=== PATIENT | male | born 1990 | race Caucasian/White ===

== ENCOUNTER 2021-08-24 23:51 | Emergency (ER) | payer SELFPAY ==
[~2021-08-24] VITALS: Ht 175.2 cm; Wt 72.5 kg
[2021-08-25] MEDS ORDERED: NS IV 1000 ML 1,000 ML IV STA (00:10)
[2021-08-25 00:35] LABS: BASOPHILS % (AUTO) 0 % (0-10); EOSINOPHILS % (AUTO) 0 % (0-10); HEMATOCRIT 46 % (40-54); HEMOGLOBIN 15.6 g/dL (13.3-17.7); LYMPHOCYTES % (AUTO) 8 % (12-44); MEAN CORPUSCULAR HEMOGLOBIN 31 pg (25-34); MEAN CORPUSCULAR HGB CONC 34 g/dL (32-36); MEAN CORPUSCULAR VOLUME 91 fL (80-99); MEAN PLATELET VOLUME 9.9 fL (9.0-12.2); MONOCYTES # (AUTO) 1.5 10^3/uL (0.0-1.0); MONOCYTES % (AUTO) 12 % (0-12); NEUTROPHILS # (AUTO) 9.7 10^3/uL (1.8-7.8); NEUTROPHILS % (AUTO) 79 % (42-75); PLATELET COUNT 186 10^3/uL (130-400); WHITE BLOOD COUNT 12.4 10^3/uL (4.3-11.0)
[2021-08-25 00:58] LABS: ALBUMIN 3.9 GM/DL (3.2-4.5); CHLORIDE 103 MMOL/L (98-107); POTASSIUM 3.7 MMOL/L (3.6-5.0); SODIUM 138 MMOL/L (135-145)
[2021-08-25 01:00] LABS: CALCIUM 9.1 MG/DL (8.5-10.1)
[2021-08-25 01:01] LABS: GLUCOSE 107 MG/DL (70-105); TOTAL PROTEIN 6.5 GM/DL (6.4-8.2)
[2021-08-25 01:02] LABS: CARBON DIOXIDE 24 MMOL/L (21-32)
[2021-08-25 01:03] LABS: BILIRUBIN,TOTAL 0.7 MG/DL (0.1-1.0)
[2021-08-25 01:05] LABS: ALKALINE PHOSPHATASE 76 U/L (40-136); CREATININE SERUM 0.93 MG/DL (0.60-1.30); GFR ESTIMATED 113
[2021-08-25 01:06] LABS: BUN/CREATININE RATIO 11
[2021-08-25 01:07] LABS: SALICYLATE < 5.0 MG/DL (5.0-20.0)
[2021-08-25 01:08] LABS: ALANINE AMINOTRANSFERASE 16 U/L (0-55)
[2021-08-25 01:09] LABS: ACETAMINOPHEN < 10 UG/ML (10-30); ATYPICAL LYMPHOCYTES 2 %; BASOPHILS % (MANUAL) 1 %; LYMPHOCYTES % (MANUAL) 9 %; MONOCYTES % (MANUAL) 13 %; NEUTROPHILS % (MANUAL) 75 %; RBC MORPH NORMAL
[2021-08-25] MEDS ORDERED: CATHETER FLUSH 10 ML SYR IV PRN (01:30)
[2021-08-25] MEDS ORDERED: IOHEXOL 350 MG/ML 100 ML (OMNIPAQUE 350) VIAL IV ONE (01:30)
[2021-08-25] MEDS ORDERED: NS 100 ML (IVPB) BAG IV ONE (01:30)
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
[2021-08-25 03:23] VITALS: BP 118/80
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
== END 2021-08-25 03:23 | disposition short-term general hospital (02) ==
LOC: EDBD 23:56 → ER 23:56
DX: S00.11XA Contusion of right eyelid and periocular area, initial encounter (principal); S06.6X0A Traumatic subarachnoid hemorrhage without loss of consciousness, initial encounter; R40.2140 Coma scale, eyes open, spontaneous, unspecified time; R40.2250 Coma scale, best verbal response, oriented, unspecified time; R40.2360 Coma scale, best motor response, obeys commands, unspecified time; F17.210 Nicotine dependence, cigarettes, uncomplicated; F17.290 Nicotine dependence, other tobacco product, uncomplicated; Y04.8XXA Assault by other bodily force, initial encounter
CPT/HCPCS: 70450; 70486; 71260; 72125; 74177; 80053; 85007; 85027; 99285; G0480 ×3; 36415; 80320; 80329

== ENCOUNTER 2021-12-20 12:34 | Inpatient (IN) | payer SELFPAY ==
[~2021-12-20] VITALS: Ht 180 cm; Wt 77.1 kg
[2021-12-20] MEDS ORDERED: KETOROLAC 30 MG/ML VIAL IVP STA (14:37)
[2021-12-20] MEDS ORDERED: fentaNYL INJ 100 MCG/2 ML AMP IVP STA (14:37)
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
--- NOTE | 2021-12-20 15:09 | Diagnostic Imaging Report ---
Indication: Left hand swelling. Time of Exam: 2:38 PM Three views of the left hand were obtained. Metacarpals are intact. Phalanges are intact. Carpus unremarkable. No fracture is seen. There is generalized soft tissue swelling about the dorsum of the hand. IMPRESSION: Soft tissue swelling. No acute bony abnormality is detected. Dictated by: Dictated on workstation # [id number]
[2021-12-20] MEDS ORDERED: NS IV 1000 ML 1,000 ML ONE ×2 (15:28→18:06)
[2021-12-20] MEDS ORDERED: HYDROmorphone 2 MG/ML VIAL (DILAUDID) IV ONE (15:30)
[2021-12-20] MEDS ORDERED: NS IV 1000 ML 1,000 ML IV ONE (15:30)
[2021-12-20 15:35] LABS: BASOPHILS % (AUTO) 0 % (0-10); EOSINOPHILS % (AUTO) 0 % (0-10); HEMATOCRIT 49 % (40-54); HEMOGLOBIN 16.9 g/dL (13.3-17.7); LYMPHOCYTES # (AUTO) 1.4 X 10^3 (1.0-4.0); LYMPHOCYTES % (AUTO) 10 % (12-44); MEAN CORPUSCULAR HEMOGLOBIN 30 pg (25-34); MEAN CORPUSCULAR HGB CONC 34 g/dL (32-36); MEAN CORPUSCULAR VOLUME 87 fL (80-99); MEAN PLATELET VOLUME 9.4 fL (9.0-12.2); MONOCYTES # (AUTO) 1.1 X 10^3 (0.0-1.0); MONOCYTES % (AUTO) 8 % (0-12); NEUTROPHILS # (AUTO) 11.1 X 10^3 (1.8-7.8); NEUTROPHILS % (AUTO) 81 % (42-75); PLATELET COUNT 315 10^3/uL (130-400); WHITE BLOOD COUNT 13.7 10^3/uL (4.3-11.0)
[2021-12-20 15:45] LABS: ALBUMIN 4.2 GM/DL (3.2-4.5)
[2021-12-20 15:46] LABS: POTASSIUM 3.9 MMOL/L (3.6-5.0)
[2021-12-20 15:47] LABS: CALCIUM 9.9 MG/DL (8.5-10.1)
[2021-12-20 15:48] LABS: TOTAL PROTEIN 8.2 GM/DL (6.4-8.2)
[2021-12-20 15:50] LABS: BILIRUBIN,TOTAL 0.4 MG/DL (0.1-1.0)
[2021-12-20 15:52] LABS: CREATININE SERUM 0.77 MG/DL (0.60-1.30)
[2021-12-20 15:55] LABS: PROTHROMBIN TIME PATIENT 13.6 SEC (12.2-14.7)
[2021-12-20] MEDS ORDERED: PIPERACILLIN SODIUM/TAZOBACTAM 4.5 GM in NS (IVPB) 100 ML IV ONE (16:15)
[2021-12-20] MEDS: VANCOMYCIN INJECTION 750 MG in NS (IVPB) 250 ML IV SCH ×2 (17:40→18:17)
[2021-12-20] MEDS ORDERED: VANCOMYCIN INJECTION 0.1 MG in NS (IVPB) 250 ML IV SCH (18:00)
[2021-12-20] MEDS ORDERED: ANTACID SUSP 30 ML UDC (MYLANTA) PO PRN (18:00)
[2021-12-20] MEDS ORDERED: polyethylene glycoL POWDER 17 GM (MIRALAX) PACK PO PRN (18:00)
[2021-12-20] MEDS ORDERED: diphenhydrAMINE 25 MG TAB (BENADRYL) PO PRN (18:00)
[2021-12-20] MEDS ORDERED: MILK OF MAGNESIA 400 MG/5 ML 30 ML UDC PO PRN (18:00)
[2021-12-20] MEDS ORDERED: NALOXONE 0.4 MG/ML 1 ML (NARCAN) VIAL IV PRN (18:00)
[2021-12-20] MEDS ORDERED: diphenhydrAMINE 50 MG/ML INJ (BENADRYL) IVP PRN (18:00)
[2021-12-20] MEDS ORDERED: LACTULOSE SYRUP 10GM/15ML (ENULOSE) 30ML UDC PO PRN (18:00)
[2021-12-20] MEDS ORDERED: MELATONIN 3 MG TABLET PO PRN (18:00)
[2021-12-20] MEDS ORDERED: CALCIUM CARBONATE 500 MG (TUMS) TAB.CHEW PO PRN (18:00)
[2021-12-20] MEDS ORDERED: ACETAMINOPHEN 325 MG TABLET PO PRN (18:00)
[2021-12-20] MEDS ORDERED: ONDANSETRON 4 MG/2 ML (SDV) Z0FRAN IV PRN (18:00)
[2021-12-20] MEDS ORDERED: ONDANSETRON 4 MG (ZOFRAN) ORAL DISSOLVE TAB PO PRN (18:00)
[2021-12-20] MEDS ORDERED: BISACODYL 10 MG SUPP (DULCOLAX) PR PRN (18:00)
[2021-12-20] MEDS ORDERED: HYDROmorphone 2 MG/ML VIAL (DILAUDID) IV PRN (18:00)
[2021-12-20] MEDS: NS IV 1000 ML 1,000 ML IV SCH (18:16)
[2021-12-20 19:36] VITALS: BP 145/74
[2021-12-20] MEDS: SENNOSIDES 8.6 MG (SENOKOT) TAB PO SCH (20:37)
[2021-12-20] MEDS: DOCUSATE SODIUM 100 MG (COLACE) CAP PO SCH (20:37)
[2021-12-20] MEDS: PIPERACILLIN SODIUM/TAZOBACTAM 4.5 GM in NS (IVPB) 100 ML IV SCH (22:56)
[2021-12-21] VITALS (9 sets, daily range): BP systolic 109–128; BP diastolic 64–82
[2021-12-21] MEDS: NS IV 1000 ML 1,000 ML IV SCH ×3 (02:18→19:16)
[2021-12-21] MEDS: VANCOMYCIN 1250 MG/NS 250 ML IVPB IV SCH ×4 (05:50→18:26)
[2021-12-21 05:56] LABS: BASOPHILS % (AUTO) 0 % (0-10); EOSINOPHILS # (AUTO) 0.1 10^3/uL (0.0-0.3); EOSINOPHILS % (AUTO) 1 % (0-10); HEMATOCRIT 43 % (40-54); HEMOGLOBIN 14.4 g/dL (13.3-17.7); LYMPHOCYTES # (AUTO) 1.2 10^3/uL (1.0-4.0); LYMPHOCYTES % (AUTO) 10 % (12-44); MEAN CORPUSCULAR HEMOGLOBIN 30 pg (25-34); MEAN CORPUSCULAR HGB CONC 33 g/dL (32-36); MEAN CORPUSCULAR VOLUME 90 fL (80-99); MEAN PLATELET VOLUME 9.8 fL (9.0-12.2); MONOCYTES # (AUTO) 1.3 10^3/uL (0.0-1.0); MONOCYTES % (AUTO) 11 % (0-12); NEUTROPHILS # (AUTO) 9.7 10^3/uL (1.8-7.8); NEUTROPHILS % (AUTO) 78 % (42-75); PLATELET COUNT 234 10^3/uL (130-400); WHITE BLOOD COUNT 12.4 10^3/uL (4.3-11.0)
[2021-12-21 06:28] LABS: POTASSIUM 4.2 MMOL/L (3.6-5.0)
[2021-12-21 06:29] LABS: CALCIUM 8.5 MG/DL (8.5-10.1)
[2021-12-21 06:33] LABS: CREATININE SERUM 0.77 MG/DL (0.60-1.30)
[2021-12-21] MEDS: PIPERACILLIN SODIUM/TAZOBACTAM 4.5 GM in NS (IVPB) 100 ML IV SCH ×2 (06:34→14:41)
[2021-12-21] MEDS: DOCUSATE SODIUM 100 MG (COLACE) CAP PO SCH ×2 (08:09→20:21)
[2021-12-21] MEDS: SENNOSIDES 8.6 MG (SENOKOT) TAB PO SCH ×2 (08:09→20:21)
[2021-12-21] MEDS ORDERED: NS IV 1000 ML 1,000 ML IV ONE (11:00)
[2021-12-21] MEDS: KETOROLAC 30 MG/ML VIAL IVP PRN ×2 (11:28→18:25)
--- NOTE | 2021-12-21 12:51 | Consultation - Surgery ---
WAYNE CLAY 12/21/21 1251: History of Present Illness History of Present Illness Patient Consulted On(jessica/time) 12/21/21 12:47 Date Seen by Provider: Dec 21, 2021 Time Seen by Provider: 12:47 History of Present Illness Consult requested by Dr. Sotelo. Patient is a 31 y/o M patient with history of epilepsy and methamphetamine, marijuana use that presented to the ER last night with CC of pain and swelling in his left index finger which started about a week ago. Patient reports he was outside clearing brush and debris around his mother's house when he believes he must have gotten bitten by either a snake or a spider. He notes 2 small macules over the left snuffbox. States initially only this area was itchy but then he developed a cyst like lesion over the left index finger. He reports his pain at present to be 3/10 on pain meds but without meds his pain is at an 8/10. Also states that the pain extends into his left forearm and elbow with red streaking. Denies any axillary tenderness. States the swelling limits some of his movement in the left arm and he is unable to use his left hand at all. The left index finger lesion was incised and drained in the ER before admission and purulent material was expressed. Dressing was then applied. Cultures showed staph infecti on to be present and pt was placed on IV vanc/zosyn and toradol for pain. Allergies and Home Medications Allergies Coded Allergies: No Known Drug Allergies (Unverified , 08/25/21) Patient Home Medication List Home Medication List Reviewed: Yes Past Hmdevxo-Qivxnf-Vzpbhd Hx Patient Social History Smoking Status: Heavy Tobacco Smoker Alcohol Use?: No Substance type: Methamphetamine, Marijuana Have you traveled recently?: No Seasonal Allergies Seasonal Allergies: No Surgeries History of Surgeries: Yes Surgeries: Tonsillectomy Respiratory History of Respiratory Disorde: No Cardiovascular History of Cardiac Disorders: No Neurological History of Neurological Disord: Yes Neurological Disorders: Neuropathy, Seizure Disorder (noncompliant with Keppra) Genitourinary History of Genitourinary Disor: No Gastrointestinal History of Gastrointestinal Di: No Musculoskeletal History of Musculoskeletal Dis: Yes Musculoskeletal Disorders: Chronic Back Pain Endocrine History of Endocrine Disorders: No HEENT History of HEENT Disorders: Yes (Tympanostomy done in both ears) Cancer History of Cancer: No Psychosocial History of Psychiatric Problem: No Integumentary History of Skin or Integumenta: Yes Skin/Integumentary Disorders: Psoriasis Family Medical History Significant Family History: CAD Over 55 Years Old (Mother ), Other Conditions/Hx (Denies any cancer in mother, father, or siblings) Review of Systems-General Constitutional: chills; No fever EENTM: No nose congestion, No throat pain Respiratory: No cough, No short of breath Cardiovascular: No chest pain, No palpitations Gastrointestinal: No abdominal pain, No nausea, No vomiting Genitourinary: No dysuria, No hematuria Musculoskeletal: No muscle pain, No muscle weakness Skin: No pruritus; rash (redness over the left forearm ) Psychiatric/Neurological: Denies Tingling, Denies Tremors Physical Exam-General Problems Physical Exam Vital Signs Vital Signs - First Documented 12/20/21 13:13 Temp 36.8 Pulse 143 Resp 18 B/P (MAP) 125/86 (99) Pulse Ox 100 O2 Delivery Room Air Capillary Refill : Less Than 3 Seconds General Appearance: WD/WN, no apparent distress HEENT: PERRL/EOMI; No scleral icterus (R), No scleral icterus (L) Neck: non-tender, supple Respiratory: chest non-tender, lungs clear, normal breath sounds, no respiratory distress, no accessory muscle use Cardiovascular: no murmur, tachycardia Gastrointestinal: non tender, soft Rectal: deferred Back: no CVA tenderness, no vertebral tenderness Extremities: non-tender, no pedal edema, no calf tenderness, swelling (left hand and arm extending into the elbow) Neurologic/Psychiatric: alert, oriented x 3 Skin: other (red streaks over the left forearm and into the elbow) Lymphatic: no adenopathy (cervical) Data Review Labs Laboratory Tests 12/20/21 15:15: White Blood Count 13.7H, Red Blood Count 5.70H, Hemoglobin 16.9, Hematocrit 49, Mean Corpuscular Volume 87, Mean Corpuscular Hemoglobin 30, Mean Corpuscular Hemoglobin Concent 34, Red Cell Distribution Width 12.1, Platelet Count 315, Mean Platelet Volume 9.4, Immature Granulocyte % (Auto) 0, Neutrophils (%) (Auto) 81H, Lymphocytes (%) (Auto) 10L, Monocytes (%) (Auto) 8, Eosinophils (%) (Auto) 0, Basophils (%) (Auto) 0, Neutrophils # (Auto) 11.1H, Lymphocytes # (Auto) 1.4, Monocytes # (Auto) 1.1H, Eosinophils # (Auto) 0.0, Basophils # (Auto) 0.0, Immature Granulocyte # (Auto) 0.0, Prothrombin Time 13.6, INR Comment 1.0, Activated Partial Thromboplast Time 32, Sodium Level 135, Potassium Level 3.9, Chloride Level 98, Carbon Dioxide Level 26, Anion Gap 11, Blood Urea Nitrogen 8, Creatinine 0.77, Estimat Glomerular Filtration Rate 122, BUN/Creatinine Ratio 10, Glucose Level 111H, Lactic Acid Level 1.50, Calcium Level 9.9, Corrected Calcium 9.7, Total Bilirubin 0.4, Aspartate Amino Transf (AST/SGOT) 10, Alanine Aminotransferase (ALT/SGPT) 14, Alkaline Phosphatase 73, C-Reactive Protein High Sensitivity 6.06H, Total Protein 8.2, Albumin 4.2, Procalcitonin 0.03 12/21/21 05:29: White Blood Count 12.4H, Red Blood Count 4.84, Hemoglobin 14.4, Hematocrit 43, Mean Corpuscular Volume 90, Mean Corpuscular Hemoglobin 30, Mean Corpuscular Hemoglobin Concent 33, Red Cell Distribution Width 12.1, Platelet Count 234, Mean Platelet Volume 9.8, Immature Granulocyte % (Auto) 0, Neutrophils (%) (Auto) 78H, Lymphocytes (%) (Auto) 10L, Monocytes (%) (Auto) 11, Eosinophils (%) (Auto) 1, Basophils (%) (Auto) 0, Neutrophils # (Auto) 9.7H, Lymphocytes # (Auto) 1.2, Monocytes # (Auto) 1.3H, Eosinophils # (Auto) 0.1, Basophils # (Auto) 0.0, Immature Granulocyte # (Auto) 0.1, Sodium Level 134L, Potassium Level 4.2, Chloride Level 104, Carbon Dioxide Level 22, Anion Gap 8, Blood Urea Nitrogen 11, Creatinine 0.77, Estimat Glomerular Filtration Rate 122, BUN/Creatinine Ratio 14, Glucose Level 104, Calcium Level 8.5 Microbiology 12/20/21 Gram Stain, Resulted Pending 12/20/21 Wound Culture - Preliminary, Resulted Staphylococcus aureus Assessment/Plan Assessment/Plan Assessment/Plan Assessment: Infectious tenosynovitis Felon of left index finger Sepsis due to Cellulitis of left index finger Plan: Patient is likely septic due to infection of the left index finger. Micro shows source of infection to be staph aureus. Patient is also tachycardic since admission with elevated WBC of 12.4 today. XR shows soft tissue swelling, but no deformity to the finger. Due to high suspicion of infectious tenosynovitis and in order to avoid loss of the finger, patient will be transferred to where a hand surgeon can treat his finger. SILVESTRECANDYOBI B DO 12/21/21 1611: History of Present Illness History of Present Illness Time Seen by Provider: 14:47 History of Present Illness Surgery asked to consult regarding abscess of finger. HPI per ED: Here with 3 days of increasing pain and swelling to the left index finger and hand and now with red streaks extending up the arm. Complains of pain to the left axilla. He is not sure exactly what caused the wound to his distal finger but thinks he may get bit by something because he has 2 small macule type source to the area of the snuffbox of the wrist on the left. Denies nausea or vomiting. States pain is quite severe. Does admit to smoking and occasionally smoking methamphetamine but does not inject methamphetamine. States he was working outdoors when all of this started. He has never had anything like this before. Does note swelling and darkening to the left index finger from IP joint to the tip on the volar surface with fluctuant area at distal phalanx pad. When I saw pt he stated the pain was severe and not getting any better; possibly 10 out of 10. He cannot flex his finger and only pain meds help. Allergies and Home Medications Allergies Coded Allergies: No Known Drug Allergies (Unverified , 08/25/21) Patient Home Medication List Home Medication List Reviewed: Yes Past Qnsygav-Gldbjr-Ohvazp Hx Patient Social History Smoking Status: Current Everyday Smoker Alcohol Use?: No Substance type: Marijuana Seasonal Allergies Seasonal Allergies: No Surgeries History of Surgeries: Yes (wisdom teeth removal) Surgeries: Tonsillectomy Respiratory History of Respiratory Disorde: No Cardiovascular History of Cardiac Disorders: No Neurological History of Neurological Disord: Yes Neurological Disorders: Neuropathy, Seizure Disorder (noncompliant with Keppra) Genitourinary History of Genitourinary Disor: No Gastrointestinal History of Gastrointestinal Di: No Musculoskeletal History of Musculoskeletal Dis: Yes Musculoskeletal Disorders: Chronic Back Pain Endocrine History of Endocrine Disorders: No HEENT History of HEENT Disorders: Yes (Tympanostomy done in both ears) Cancer History of Cancer: No Psychosocial History of Psychiatric Problem: No Integumentary History of Skin or Integumenta: Yes Skin/Integumentary Disorders: Psoriasis Family Medical History Significant Family History: CAD Over 55 Years Old (Mother ), Other Conditions/Hx (Denies any cancer in mother, father, or siblings) Review of Systems-General Constitutional: chills; No fever EENTM: No nose congestion, No throat pain Respiratory: No cough, No short of breath Cardiovascular: No chest pain, No palpitations Gastrointestinal: No abdominal pain, No vomiting Genitourinary: No dysuria, No hematuria Musculoskeletal: No muscle pain, No muscle weakness Skin: No pruritus; rash (redness over the left forearm ) Psychiatric/Neurological: Denies Tingling, Denies Tremors Physical Exam-General Problems Physical Exam General Appearance: WD/WN, moderate distress (secondary to pain) Eyes: Bilateral Eye PERRL, Bilateral Eye EOMI HEENT: pharynx normal; No scleral icterus (R), No scleral icterus (L) Neck: non-tender, supple Respiratory: chest non-tender, lungs clear, normal breath sounds, no respiratory distress, no accessory muscle use Cardiovascular: no murmur, tachycardia Gastrointestinal: non tender, soft, no organomegaly Rectal: deferred Back: no CVA tenderness, no vertebral tenderness Extremities: no calf tenderness, swelling (left hand, pointer finger and arm extending into the elbow. Finger is 2-3 times the size of the other fingers on ventral aspect and lateral there is purplish discoloration and severe tenderness with passive flexion, non-tender with extension) Neurologic/Psychiatric: alert, oriented x 3 Skin: other (red streaks over the left forearm and into the elbow) Lymphatic: no adenopathy (neck, axilla or gron) Data Review Radiology Date of Exam:12/20/21 HAND, LEFT, 3 VIEWS Indication: Left hand swelling. Time of Exam: 2:38 PM Three views of the left hand were obtained. Metacarpals are intact. Phalanges are intact. Carpus unremarkable. No fracture is seen. There is generalized soft tissue swelling about the dorsum of the hand. IMPRESSION: Soft tissue swelling. No acute bony abnormality is detected. Dictated by: Dictated on workstation # [id number] Dict: 12/20/21 1505 Trans: 12/20/21 1639 [facility] [id number] Interpreted by: KELLY DALE MD Electronically signed by: KELLY DALE MD 12/20/21 1639 Assessment/Plan Assessment/Plan Assessment/Plan Abscess and infection of Left pointer finger Sepsis I am very concerned that pt has Flexor Tenosynovitis; which could lead to loss of finger. He meets all criteria and his physical exam is classic for this. I think he will need urgent if not emergent exploration by a hand surgeon, that cannot be kept here. Continue IV ABX and pain control until he get transferred out. Supervisory-Addendum Brief Verification & Attestation Participated in pt care: history, MDM, physical Personally performed: exam, history, MDM, supervision of care Care discussed with: Medical Student Procedures: n/a Verification and Attestation of Medical Student E/M Service A medical student performed and documented this service. I then reviewed and verified all information documented by the medical student and made modifications to such information, when appropriate. I personally performed a physical exam, medical decision making and then discussed any differences between the notes and made revisions as necessary to create one note. Obi Crum , 12/21/21 , 16:14 WAYNE CLAY Dec 21, 2021 12:51 OBI CRUM DO Dec 21, 2021 16:11
[2021-12-21] MEDS ORDERED: ACETAMINOPHEN 325 MG TABLET PO PRN (14:00)
--- NOTE | 2021-12-21 16:09 | History & Physical-Hospitalist ---
History of Present Illness HPI/Chief Complaint Douglas Pizano is a 31 year old male with PMH seizure disorder, polysubstance abuse, who presented with finger pain. He reports that he was working in the yard a few days ago when he wounded his hand. He thinks he may have been bitten by a snake or a spider. He also has superficial wounds on his right hand. He has pain in his left index finger and hand up into his forearm. He denies fevers and chills. He currently uses methamphetamine, most recently admits to using a few days ago. He denies injecting. He smokes or snorts it. He says he used to be addicted to heroin but says he never injected that either. Source: patient Exam Limitations: no limitations Date Seen 12/21/21 Time Seen by a Provider: 10:45 Attending Physician Denisse,Local Physician PCP Admitting Physician: Dunia Olea MD Attending Physician: Dunia Olea MD Referring Physician Date of Admission Dec 20, 2021 at 16:12 Home Medications & Allergies Home Medications Reviewed patient Home Medication Reconciliation performed by pharmacy medication reconciliations farm equipment service technician and/or nursing. Patients Allergies have been reviewed. Allergies Allergies Coded Allergies No Known Drug Allergies (Unverified08/25/21) Past Naoufil-Rruzwe-Bungdv Hx Patient Social History Tobacco Use?: Yes Tobacco type used: Cigarettes Smoking Status: Heavy Tobacco Smoker Smokeless Tobacco Frequency: Never a User Use of E-Cig and/or Vaping dev: No Use of E-Cig and/or Vaping Ricki: Never a User Substance use?: Yes Substance type: Methamphetamine, Marijuana Substance frequency: Couple times a week Alcohol Use?: No Pt feels they are or have been: No Seasonal Allergies Seasonal Allergies: No Current Status Advance Directives: No Communicates: Verbally Primary Language: Vietnamese Preferred Spoken Language: Vietnamese Is interpretation needed?: No Implanted or Applied Medical D: None Past Medical History Surgeries: Tonsillectomy Neuropathy, Seizure Disorder (noncompliant with Keppra) Chronic Back Pain Psoriasis Family Medical History Reviewed Nursing Family Hx CAD Over 55 Years Old (Mother ), Other Conditions/Hx (Denies any cancer in mother, father, or siblings) Review of Systems Constitutional: no symptoms reported EENTM: no symptoms reported Respiratory: no symptoms reported Cardiovascular: no symptoms reported Gastrointestinal: no symptoms reported Physical Exam Physical Exam Vital Signs Vital Signs - First Documented 10/28/22 13:13 Temp 36.8 Pulse 143 Resp 18 B/P (MAP) 125/86 (99) Pulse Ox 100 O2 Delivery Room Air Capillary Refill : Less Than 3 Seconds Height, Weight, BMI Height: '" Weight: lbs. oz. kg; 23.79 BMI Method: General Appearance: No Apparent Distress, WD/WN HEENT: PERRL/EOMI, Pharynx Normal Neck: Normal Inspection, Supple Respiratory: Lungs Clear, Normal Breath Sounds, No Respiratory Distress Cardiovascular: No Murmur, Tachycardia Gastrointestinal: Normal Bowel Sounds, Non Tender, Soft Extremity: Inflammation, Swelling, Other (left index finger wrapped, red streaking and tenderness of hand and forearm) Neurologic/Psychiatric: Alert, Normal Mood/Affect Skin: Erythema Results Results/Procedures Labs Laboratory Tests 12/20/21 15:15 12/21/21 05:29 Patient resulted labs reviewed. Imaging: Reviewed Imaging Report Assessment/Plan Admission Diagnosis Sepsis due to skin infection Admission Status: Inpatient Order (span 2 midnights) Reason for Inpatient Admission: IV antibiotcs Assessment and Plan Sepsis due to skin infection Finger abscess Infectious tenosynovitis Abscess drained in ER IV Vancomycin and Zosyn Culture growing presumed MRSA Surgery consulted Recommending transfer for hand surgery Diagnosis/Problems Diagnosis/Problems (1) Infectious tenosynovitis Status: Acute (2) Sepsis due to skin infection Status: Acute (3) Abscess of finger Status: Acute Qualifiers: Laterality: left Qualified Codes: L02.512 - Cutaneous abscess of left hand (4) Polysubstance abuse Status: Chronic DUNIA OLEA MD Dec 21, 2021 16:08
[2021-12-22] MEDS ORDERED: TROUGH ORDER-PHARMACY XX NR (05:00)
== END 2021-12-21 20:34 | disposition left against medical advice (07) | DRG 872 ==
LOC: EDUNIT# 12:34 → ER 12:36 → 4TH 16:12
PROVIDERS: ADMIT Internal Medicine; ATTEND Internal Medicine
PROC: 0X9K0ZZ Drainage of Left Hand, Open Approach (ICD-10-PCS; principal; 2021-12-20)
DX: A41.9 Sepsis, unspecified organism (principal); L02.512 Cutaneous abscess of left hand; M65.142 Other infective (teno)synovitis, left hand; F19.10 Other psychoactive substance abuse, uncomplicated; G89.29 Other chronic pain; M54.9 Dorsalgia, unspecified; G40.909 Epilepsy, unspecified, not intractable, without status epilepticus; Z91.14 Patient's other noncompliance with medication regimen; L03.012 Cellulitis of left finger; F17.210 Nicotine dependence, cigarettes, uncomplicated; F15.90 Other stimulant use, unspecified, uncomplicated; F12.90 Cannabis use, unspecified, uncomplicated
CPT/HCPCS: 36415; 73130; 80048; 80053; 83605; 84145; 85025; 85610; 85730; 86141; 87040; 87070; 87077; 87186; 87205